=== PATIENT | female | born 1995 | race American Indian/Alaskan Native ===

== ENCOUNTER 2021-01-31 08:23 | Emergency (ER) | payer MEDICAID ==
[2021-01-31] MEDS ORDERED: levETIRAcetam 1000 MG/NS 0.75% 1,000 MG/100 ML BAG IV ONE (08:48)
--- NOTE | 2021-01-31 08:51 | Emergency Department Report ---
ED Seizure HPI - General Chief Complaint: Seizure Stated Complaint: SEIZURE Time Seen by Provider: 01/31/21 08:48 Source: patient Mode of arrival: Ambulatory Limitations: No Limitations - History of Present Illness Initial Comments: Patient is 25 years old female with history of seizures since she was 6-year-old. Patient presented to the ER stating that she had 1 episode of seizure this morning. Patient stated that she was on Keppra however her neur ologist at [facility] stopped her Keppra after he did an EEG and told her that she does not need the medication anymore. Patient denied any fever or chills. No head injury. No other complaint. MD Complaint: seizure -: This morning Description of Episode: loss of consciousness, tonic-clonic movement, post-event confusion Witnessed:: Yes Trauma: No Seizure History: known seizure disorder Place: home Possible Precipitating Event: none Associated Symptoms: denies other symptoms Treatments Prior to Arrival: none - Related Data Allergies Allergy/AdvReac Type Severity Reaction Status Date / Time No Known Allergies Allergy Verified 01/31/21 08:28 ED Review of Systems ROS: Stated complaint: SEIZURE Other details as noted in HPI Comment: All other systems reviewed and negative Constitutional: denies: chills, fever Respiratory: denies: cough, shortness of breath, SOB with exertion Cardiovascular: denies: chest pain, palpitations Gastrointestinal: denies: abdominal pain, nausea Musculoskeletal: denies: back pain Neurological: denies: headache, weakness, numbness, paresthesias, confusion, abnormal gait ED Physical Exam - General Limitations: No Limitations General appearance: alert, in no apparent distress - Head Head exam: Present: atraumatic, normocephalic, normal inspection - Eye Eye exam: Present: normal appearance, PERRL - Neck Neck exam: Present: normal inspection, full ROM. Absent: tenderness, meningismus - Respiratory Respiratory exam: Present: normal lung sounds bilaterally - Cardiovascular Cardiovascular Exam: Present: regular rate, normal rhythm, normal heart sounds - GI/Abdominal GI/Abdominal exam: Present: soft, normal bowel sounds. Absent: distended, tenderness, guarding, rebound, rigid, mass, bruit, pulsatile mass, hernia - Extremities Exam Extremities exam: Present: normal inspection, full ROM, normal capillary refill. Absent: tenderness - Back Exam Back exam: Present: normal inspection, full ROM. Absent: CVA tenderness (R), CVA tenderness (L) - Neurological Exam Neurological exam: Present: alert, oriented X3, CN II-XII intact - Psychiatric Psychiatric exam: Present: normal mood - Skin Skin exam: Present: warm, intact, normal color ED Course Vital Signs 01/31/21 09:03 O2 Sat by Pulse 96 Oximetry ED Medical Decision Making - Lab Data Result diagrams: 01/31/21 09:03 01/31/21 09:03 - Medical Decision Making Patient is 25 years old female with history of seizures since she was 6-year-old. Patient presented to the ER stating that she had 1 episode of seizure this morning. Patient stated that she was on Keppra however her neurologist at [facility] stopped her Keppra after he did an EEG and told her that she does not need the medication anymore. Patient denied any fever or chills. No head injury. No other complaint. Patient received 1 g of Keppra IV. Labs reviewed and is unremarkable. I advised patient to restart on her Keppra and follow-up with her neurologist in the next 2 to 3 days and to return to the ER if she develop any new symptoms. Patient also advised not to drive or operate heavy machinery until she has been cleared by her neurologist. Critical care attestation.: If time is entered above; I have spent that time in minutes in the direct care of this critically ill patient, excluding procedure time. ED Disposition Clinical Impression: Seizure Disposition: HOME / SELF CARE / HOMELESS Is pt being admited?: No Condition: Stable Instructions: Seizure, Adult Referrals: PRIMARY CARE, [Primary Care Provider] - 3-5 Days
[2021-01-31 09:27] LABS: Basophils # (Auto) 0.1 K/mm3 (0.0-0.1); Eosinophils # (Auto) 0.3 K/mm3 (0.0-0.4); Eosinophils % (Auto) 5.4 % (0.0-4.3); Hematocrit 33.9 % (30.3-42.9); Hemoglobin 10.9 gm/dl (10.1-14.3); Lymphocytes % (Auto) 33.8 % (13.4-35.0); Mean Corpuscular HGB Conc 32 % (30-34); Mean Corpuscular Volume 79 fl (79-97); Monocytes # (Auto) 0.3 K/mm3 (0.0-0.8); Monocytes % (Auto) 4.7 % (0.0-7.3); Platelet Count 293 K/mm3 (140-440); Red Blood Count 4.29 M/mm3 (3.65-5.03); Red Cell Distribution Width 19.8 % (13.2-15.2)
[2021-01-31 09:51] LABS: Alanine Aminotransferase 11 units/L (7-56); Albumin 4.3 g/dL (3.9-5); Blood Urea Nitrogen 10 mg/dL (7-17); Calcium 9.2 mg/dL (8.4-10.2); Hemolysis Index 0
[2021-01-31 09:55] LABS: BUN/Creatinine Ratio 14; Bilirubin,Direct < 0.2 mg/dL (0-0.2)
== END 2021-01-31 12:51 | disposition home or self-care (01) ==
LOC: ED 08:23
DX: G40.909 Epilepsy, unspecified, not intractable, without status epilepticus (principal)
CPT/HCPCS: 36415; 80048; 80076; 84703; 85025; 96374; 99283; J1953

== ENCOUNTER 2021-06-23 03:03 | Emergency (ER) | payer MEDICAID ==
[2021-06-23] MEDS ORDERED: levETIRAcetam 1000 MG/NS 0.75% 1,000 MG/100 ML BAG IV ONE (03:36)
--- NOTE | 2021-06-23 03:39 | Emergency Department Report ---
ED Seizure HPI - General Stated Complaint: SEIZURES X 2 Time Seen by Provider: 06/23/21 03:36 Source: patient Mode of arrival: Ambulatory - History of Present Illness Initial Comments: Chief complaint: Seizure HPI: This is a 25-year-old female with history of seizure disorder presents with 2 seizures today. She has been in her normal state of health. She has been out of her medication Keppra for over a month. She has mild headache. Otherwise she has been in good health. She denies fever, sore throat, chest pain, abdominal pain. No possibility of according to her report. MD Complaint: seizure Description of Episode: loss of consciousness Witnessed:: Yes Trauma: No Seizure History: known seizure disorder Place: home Possible Precipitating Event: other (Lack of medication) Associated Symptoms: denies other symptoms Treatments Prior to Arrival: none - Related Data Previous Rx's Medication Instructions Recorded Last Taken Type levETIRAcetam [Keppra TAB] 500 mg PO BID #120 tablet 01/31/21 Unknown Rx levETIRAcetam [Keppra TAB] 500 mg PO BID #60 tablet 06/23/21 Unknown Rx Allergies Allergy/AdvReac Type Severity Reaction Status Date / Time No Known Allergies Allergy Verified 01/31/21 08:28 ED Review of Systems ROS: Stated complaint: SEIZURES X 2 Other details as noted in HPI Comment: All other systems reviewed and negative Constitutional: denies: chills Respiratory: denies: cough, shortness of breath Cardiovascular: denies: chest pain Gastrointestinal: denies: abdominal pain Neurological: headache ED Past Medical Hx - Past Medical History Previous Medical History?: Yes Hx Seizures: Yes - Surgical History Past Surgical History?: No - Social History Smoking Status: Never Smoker Substance Use Type: None - Medications Home Medications: Home Medications Medication Instructions Recorded Confirmed Last Taken Type levETIRAcetam [Keppra TAB] 500 mg PO BID #120 tablet 01/31/21 Unknown Rx levETIRAcetam [Keppra TAB] 500 mg PO BID #60 tablet 06/23/21 Unknown Rx ED Physical Exam - General Limitations: No Limitations General appearance: alert, in no apparent distress - Head Head exam: Present: atraumatic, normocephalic - Eye Eye exam: Present: normal appearance - ENT ENT exam: Present: mucous membranes moist - Neck Neck exam: Present: normal inspection, full ROM - Respiratory Respiratory exam: Present: normal lung sounds bilaterally. Absent: respiratory distress, wheezes, rales, rhonchi, stridor - Cardiovascular Cardiovascular Exam: Present: regular rate, normal rhythm, normal heart sounds. Absent: systolic murmur, diastolic murmur, rubs, gallop - GI/Abdominal GI/Abdominal exam: Present: soft, normal bowel sounds. Absent: distended, tende rness, guarding, rebound - Extremities Exam Extremities exam: Present: normal inspection - Neurological Exam Neurological exam: Present: alert, oriented X3, normal gait, other (Neuro exam grossly normal) - Psychiatric Psychiatric exam: Present: normal affect, normal mood - Skin Skin exam: Present: warm, dry, intact, normal color. Absent: rash ED Medical Decision Making - Medical Decision Making Breakthrough seizure due to medication noncompliance. Patient received IV Keppra load. Prescribed Keppra with refills. Referred to neurologist. Critical care attestation.: If time is entered above; I have spent that time in minutes in the direct care of this critically ill patient, excluding procedure time. ED Disposition Clinical Impression: Breakthrough seizure, Seizure disorder Disposition: 01 HOME / SELF CARE / HOMELESS Is pt being admited?: No Does the pt Need Aspirin: No Condition: Stable Instructions: Epilepsy, [id number] Prescriptions: levETIRAcetam [Keppra TAB] 500 mg PO BID #60 tablet Referrals: ELSY CRAWFORD MD [Referring] - 3-5 Days
[2021-06-23 04:41] VITALS: BP 113/84
== END 2021-06-23 04:46 | disposition home or self-care (01) ==
LOC: ED 03:03
DX: G40.909 Epilepsy, unspecified, not intractable, without status epilepticus (principal)
CPT/HCPCS: 96374; 99282; J1953; 96365

== ENCOUNTER 2021-08-01 16:06 | Emergency (ER) | payer BC, MEDICAID ==
[2021-08-01 17:19] VITALS: BP 186/98
== END 2021-08-01 17:02 | disposition left against medical advice (07) ==
LOC: ED 16:06
DX: R56.9 Unspecified convulsions (principal); Z53.21 Procedure and treatment not carried out due to patient leaving prior to being seen by health care provider